=== PATIENT | female | born 1985 | race Caucasian/White ===

== ENCOUNTER 2018-04-17 17:10 | Emergency (ER) | payer OTHER ==
[~2018-04-17] VITALS: Ht 160 cm; Wt 53.1 kg
[2018-04-17] MEDS ORDERED: STEROIDS (17:27)
[2018-04-17] MEDS ORDERED: PREDNISONE 20 M20 M1 PO (17:44)
[2018-04-17] MEDS ORDERED: AMOXICILLIN 50500 MG PO (17:44)
[2018-04-17] MEDS ORDERED: BUTALB-APAP-CA1 EACH PO (17:45)
[2018-04-17 18:00] VITALS: BP 155/85
== END 2018-04-17 18:04 | disposition home or self-care (01) ==
LOC: M.ERS 17:10
DX: J01.90 Acute sinusitis, unspecified (principal); R51 Headache; E03.9 Hypothyroidism, unspecified

== ENCOUNTER 2019-03-18 15:17 | Emergency (ER) | payer OTHER ==
[~2019-03-18] VITALS: Ht 157.5 cm; Wt 58.5 kg
[~2019-03-18 15:17] MED LIST: AMOXICILLIN 50500 MG PO; BUTALB-APAP-CA1 EACH PO; PREDNISONE 20 M20 M1 PO; STEROIDS
[2019-03-18 16:44] VITALS: BP 90/46
== END 2019-03-18 16:45 | disposition home or self-care (01) ==
LOC: M.ERS 15:17
DX: S60.222A Contusion of left hand, initial encounter (principal); E27.1 Primary adrenocortical insufficiency; E03.9 Hypothyroidism, unspecified; W23.1XXA Caught, crushed, jammed, or pinched between stationary objects, initial encounter; Y92.89 Other specified places as the place of occurrence of the external cause; Y93.89 Activity, other specified; Y99.8 Other external cause status